=== PATIENT | female | born 1975 | race African-American/Black ===

== ENCOUNTER 2022-04-12 16:14 | Emergency (ER) | payer OTHER ==
[~2022-04-12] VITALS: Ht 172.7 cm; Wt 91.0 kg
[2022-04-12 16:25] VITALS: BP 149/84
== END 2022-04-12 22:43 | disposition home or self-care (01) ==
LOC: ER 16:14
DX: M79.605 Pain in left leg (principal); Z88.0 Allergy status to penicillin; Z98.890 Other specified postprocedural states
CPT/HCPCS: 73590; 73610; 73630; 93971; 99284